=== PATIENT | female | born 1975 | race Caucasian/White ===

== ENCOUNTER 2024-08-29 08:46 | Emergency (ER) | payer OTHER, SELFPAY ==
[2024-08-29 08:48] VITALS: BP 159/93
[2024-08-29 09:14] VITALS: BP 149/82
[2024-08-29 09:19] VITALS: BMI 31.0
[2024-08-29 09:20] VITALS: BP 149/82
--- NOTE | 2024-08-29 09:20 | ED.GENMED ---
History of Present Illness
General
Chief Complaint: Heart Rate Problem
Source: patient
Exam Limitations: none
Time Seen by Provider: 08/29/24 09:13
History of Present Illness
History of Present Illness:
See MDM
Past History
Past History
ED Past Medical History: Cancer (breast) and Other (Anemia)
ED Past Surgical History: None
Social History
Tobacco: Non-smoker
Alcohol: None
Living: with family
Phy Exam
Physical Exam
Physical Exam:
See MDM
Course
Orders/Labs/Results
Orders:
Orders
08/29/24 08:48
EKG [Electrocardiogram (*1)] Urgent
Reason for Study: Palpitations
EKG- Treatment ONCE
08/29/24 09:27
Complete Blood Count/With Diff Urgent
Comprehensive Metabolic Panel Urgent
Magnesium Urgent
TSH Reflex To Free T4 Urgent
Abnormal Lab Results
08/29/24
09:27
WBC 4.3 L 10^3/uL
(4.8-10.8)
RBC 4.16 L 10^6/uL
(4.20-5.40)
Hct 36.4 L %
(37.0-47.0)
Chloride 109 H mmol/L
(98-107)
08/29/24 09:27
08/29/24 09:27
Vital Signs
Initial and Last Documented VS:
Initial Vital Signs
Temp Pulse Resp BP Pulse Ox
97.6 F 96 20 159/93 100
08/29/24 08:48 08/29/24 08:48 08/29/24 08:48 08/29/24 08:48 08/29/24 08:48
Last Documented Vital Signs
Temp Pulse Resp BP Pulse Ox
98.5 F 87 19 149/82 100
08/29/24 09:20 08/29/24 09:20 08/29/24 09:20 08/29/24 09:20 08/29/24 09:24
MDM/Problems Addressed
Differential Diagnosis Includes:
HPI and MDM Narrative:
49-year-old female presenting for evaluation of palpitations. She noticed these episodes starting about 2 weeks ago while on vacation. Since then, the palpitations are more frequent and lasting longer, sometimes lasting a few hours. When she
started to notice the symptoms earlier today, she came to the hospital. She has had an episode of palpitations years ago that had a negative workup which included a Holter monitor. Patient states she has been drinking some caffeine recently but
states it has been very minimal and very inconsistent with prior episodes related to caffeine. She denies any chest pain or shortness of breath
EKG is nonischemic and shows no abnormality in regards to palpitations. Will obtain basic blood work and thyroid function and continue to monitor on telemetry. We discussed diagnoses such as SVT versus A-fib versus PVCs
Physical exam
General: Well appearing and non-toxic
HEENT: protecting airway
Neck: appears supple
CV: No evidence of cyanosis. Regular rate and rhythm
Resp: No accessory muscle use
Abd: Non-distended
Extremities: No deformities. No leg edema or tenderness
Neuro: alert
Psych: Normal affect
Skin: Intact
Problems Addressed including Acute and Chronic Conditions affecting care:
1. Palpitations
Acuity: acute
Prognosis: stable
Details: Will continue to monitor on telemetry. Will obtain basic blood work
Updates
Patient remains in sinus rhythm on the monitor. Blood work without clinically significant abnormality. She remains well-appearing and nontoxic. Discussed talk to PCP again for Holter monitor
Differential Diagnosis (but not limited to): SVT, A-fib, PVCs
Testing considered: D-dimer but she has no clinical evidence to suspect DVT or PE
Drug therapy (if applicable): OTC meds, please see d/c instruction regarding Rx drugs
Amount and/or Complexity of Data Reviewed
Clinical info obtained from: Patient
External data reviewed: N/A
Labs I independently reviewed (but not limited to): Magnesium normal, TSH normal
Radiology: N/A
Pulse Ox: not hypoxic
EKG independently reviewed: Sinus rhythm, normal axis, no STEMI
Classics Professor: sinus rhythm
Critical Care: N/A
Risk of Complication:
Social Determinants of health: Good social support
Discussed with other providers: N/A
Escalation of Care includes Admit/Obs: After being observed in the Emergency Department, pt stable for discharge.
Occasional wrong word or 'sound a like' substitutions may have occurred due to the inherent limitations of voice recognition software. Read the chart carefully and recognize, using context, where substitutions have occurred.
*Pulse Oximetry
SaO2: 100
Oxygen Mode of Delivery: Room air
Patient hypoxic: no
*Critical Care Note
Total Time (30-74mins, 75-104mins- exclusive of procedures): Not Applicable
ED Attending Note
-
Portions of this chart may have been created with voice recognition software.� Occasional wrong word or��sound alike� substitutions may have occurred due to the inherent limitations of voice recognition software.
Discharge Plan
Departure
Patient Disposition: Home (Routine Discharge)
Date of Disposition: 08/29/24
Time of Disposition: 10:30
Patient with high blood pressure during this ER visit?: Yes
Discharge Problem:
Heart palpitations
Instructions: Palpitations (DC), BLOOD PRESSURE
Prescriptions:
No Action
ferrous sulfate [Iron (ferrous sulfate)] 325 mg (65 mg iron) Tablet
325 mg PO DAILY
cholecalciferol (vitamin D3) [Vitamin D3] 25 mcg (1,000 unit) Tablet
25 mcg PO DAILY
acetaminophen [Pain Relief ES (acetaminophen)] 500 mg tablet
1,000 mg PO Q6
gabapentin 100 mg capsule
100 mg PO TID
tramadol 50 mg Tablet
50 mg PO Q6HPRN PRN (Reason: moderate pain) 7 Days Qty: 15 0RF
cefadroxil 500 mg capsule
500 mg PO BID Qty: 10 0RF
diazepam 5 mg tablet
5 mg PO TID Qty: 24 0RF
docusate sodium 100 mg capsule
100 mg PO TID 14 Days Qty: 42 0RF
Referrals:
Yesika Hu DO [Family Provider, Internal Medicine]
Activity Restrictions/Additional Instructions:
Please return for any worsening symptoms.
You may return at any time if you have further concerns.
Please follow up with your doctor at the first available appointment, preferably this week. Please discuss obtaining a Holter monitor again.
Thank you for choosing [facility].
Interventions
Interventions:
*Risk Screen - Suicide Last Done: 08/29/24 08:48
*General Assessment Last Done: 08/29/24 09:20
*Neglect/Abuse Screening Last Done: 08/29/24 08:48
*ED- Fall Risk Assessment Last Done: 08/29/24 09:20
*ED COVID-19 Vaccine History Last Done: 08/29/24 09:20
ED- Cardiac Assessment Last Done: 08/29/24 09:20
ED- Pulmonary Assessment Last Done: 08/29/24 09:20
Discharge Date and Time
Print Language: [id number]
[2024-08-29 09:43] LABS: Hematocrit 36.4 % (37.0-47.0); Hemoglobin 12.2 g/dL (12.0-16.0); Mean Corp Hgb Conc. 33.5 g/dL (33.0-37.0); Mean Corpuscular Volume 87.5 fL (81.0-99.0); Nucleated Red Blood Cells % 0 %; Platelet Count 244 10^3/uL (130-400); Red Cell Dist. Width 13.7 % (11.5-14.5)
[2024-08-29 09:51] LABS: ALT (SGPT) 19 U/L (0-35); AST (SGOT) 25 U/L (14-36); Albumin 4.3 g/dl (3.5-5.0); Alkaline Phosphatase 49 U/L (38-126); Blood Urea Nitrogen 13 mg/dl (7-17); Calcium 9.3 mg/dl (8.4-10.2); Carbon Dioxide 25 mmol/L (22-30); Chloride 109 mmol/L (98-107); Estimated Creatinine Clearance 113 ml/min; Glucose 96 mg/dl (70-99); Magnesium 2.1 mg/dl (1.6-2.3); Potassium 4.0 mmol/L (3.5-5.1); Sodium 142 mmol/L (135-145); Total Protein 6.9 g/dl (6.3-8.2); eGFR > 60.00
[2024-08-29 10:00] VITALS: BP 123/75
[2024-08-29 10:42] VITALS: BP 123/75
[2024-08-29 11:00] VITALS: BP 122/79
== END 2024-08-29 11:36 | disposition home or self-care (01) ==
LOC: EMR 08:46
PROVIDERS: EMERGENCY PHYSICIAN Student in an Organized Health Care Education/Training Program; FAMILY PHYSICIAN Internal Medicine
DX: R00.2 Palpitations (principal)
CPT/HCPCS: 99283; 80053; 83735; 84443; 85025; 93005

== ENCOUNTER → 2024-09-04 13:18 | Outpatient (REF) | payer OTHER, SELFPAY | LOC: RCS 13:18 | PROVIDERS: ATTENDING PHYSICIAN Internal Medicine; FAMILY PHYSICIAN Internal Medicine | DX: R00.2 Palpitations (principal) | CPT/HCPCS: 93225; 93226 ==

== ENCOUNTER → 2025-01-29 08:22 | Outpatient (REF) | payer OTHER, SELFPAY | LOC: RAD 08:22 | PROVIDERS: ATTENDING PHYSICIAN Hospitalist | DX: M25.531 Pain in right wrist (principal) | CPT/HCPCS: 76882 ==